=== PATIENT | female | born 1955 | race African-American/Black ===

== ENCOUNTER 2021-01-01 13:07 | Emergency (ER) | payer OTHER ==
[~2021-01-01] VITALS: Ht 170.2 cm; Wt 110.8 kg
[2021-01-01 13:10] VITALS: BP 204/117
--- NOTE | 2021-01-01 13:18 | NUR ---
PT AMB TO BED 9.
--- NOTE | 2021-01-01 13:40 | NUR ---
65 y/o F BIB self from home from dentist appointment for elevated BP and ER evaluation. Patient A&Ox4, ambulatory, states she was at her dentist appointment and was advised of BP readings: 214/113, 230/130, 212/121. Patient states she does not feel any symptoms at this time. Patient denies SOB, epitaxis, chest pain, headache, blurry vision, dizziness, swelling, nausea, vomiting, abdominal pain. Patient denies any medications prior to arrival. Pt placed onto soft mud molder. Bed locked in lowest position, side rails x 1, call light in reach. BP elevated in triage. PMH/Sx/Meds: appendectomy, C-sections NKA
--- NOTE | 2021-01-01 13:40 | NUR ---
Dr. Anderson is evaluating patient at bedside
--- NOTE | 2021-01-01 13:50 | NUR ---
Lab at bedside
[2021-01-01 14:00] LABS: BASOPHILS % (AUTO) 0.5 % (0.0-2.0); EOSINOPHILS % (AUTO) 0.6 % (0.0-4.0); HEMATOCRIT 31.7 % (36-48); HEMOGLOBIN 10.5 g/dL (12.0-16.0); LYMPHOCYTES # (AUTO) 0.6 K/uL (2.5-16.5); LYMPHOCYTES % (AUTO) 9.4 % (20.5-51.1); MEAN CORPUSCULAR HEMOGLOBIN 29 pg (27-31); MEAN CORPUSCULAR HGB CONC 33 g/dL (33-37); MEAN CORPUSCULAR VOLUME 86.6 fL (80-94); MONOCYTES # (AUTO) 0.3 K/uL (0.8-1.0); MONOCYTES % (AUTO) 5.2 % (1.7-9.3); NEUTROPHILS # (AUTO) 5.4 K/uL (1.8-7.7); NEUTROPHILS % (AUTO) 84.3 % (42.2-75.2); PLATELET COUNT (AUTO) 376 K/uL (140-450); RED BLOOD CELL COUNT(AUTO) 3.67 MIL/uL (4.20-5.40); RED CELL DISTRIBUTION WIDTH 15.5 % (11.6-13.7); WHITE BLOOD COUNT (AUTO) 6.4 K/uL (4.8-10.8)
[2021-01-01 14:20] LABS: ALBUMIN 3.7 g/dL (3.4-5.0); ANION GAP 10.9 (8-16); CARBON DIOXIDE 29.8 mmol/L (21-32); CREATININE 0.9 mg/dL (0.6-1.3); POTASSIUM 3.7 mmol/L (3.5-5.1); TOTAL BILIRUBIN 0.2 mg/dL (0.0-1.0)
--- NOTE | 2021-01-01 14:56 | NUR ---
BP 209/112. Dr. Anderson made aware; verbal order received for Amlodipine 5mg PO.
[2021-01-01] MEDS ORDERED: amLODIPine 5 MG TAB ONE (14:59)
[2021-01-01] MEDS: amLODIPine 5 MG TAB PO ONE ×2 (15:04→16:13)
[2021-01-01] MEDS ORDERED: AMLO10TA PO ×2 (15:48→15:49)
--- NOTE | 2021-01-01 16:00 | NUR ---
BP 198/109. Dr. Anderson made aware.
[2021-01-01] MEDS: CLONIDINE HYDROCHLORIDE 0.1 MG TAB PO ONE (16:13)
--- NOTE | 2021-01-01 16:45 | NUR ---
Dr. Anderson made aware of BP 204/124 L arm, R arm 205/116. New orders to be placed.
--- NOTE | 2021-01-01 17:20 | NUR ---
Dr. Anderson is reevaluating patient at bedside
[2021-01-01] MEDS ORDERED: hydrALAZINE 10 MG TAB ONE (17:25)
[2021-01-01] MEDS: hydrALAZINE 10 MG TAB PO SCH (17:29)
--- NOTE | 2021-01-01 18:00 | NUR ---
Dr. Anderson is reevaluating pt at bedside
[2021-01-01 18:38] VITALS: BP 194/116
--- NOTE | 2021-01-01 18:38 | NUR ---
Patient discharged with v/s stable. Written and verbal after care instructions given and explained. Patient alert, oriented and verbalized understanding of instructions. Ambulatory with steady gait. All questions addressed prior to discharge. ID band removed. Patient advised to follow up with PMD. Rx of Norvasc given. Patient educated on indication of medication including possible reaction and side effects. Opportunity to ask questions provided and answered.
== END 2021-01-01 18:38 | disposition home or self-care (01) ==
LOC: MED 13:07
DX: I10 Essential (primary) hypertension (principal)
CPT/HCPCS: 36415; 80053; 84484; 85025; 93005; 99285